=== PATIENT | female | born 1950 | race African-American/Black ===

== ENCOUNTER 2020-02-14 13:13 | Emergency (ER) | payer OTHER, MEDICAID ==
[~2020-02-14] VITALS: Ht 160 cm; Wt 74.8 kg
[2020-02-14] MEDS ORDERED: cloNIDine HCL 0.1 MG TAB ONE (13:47)
[2020-02-14 14:29] LABS: Basophils # (auto) 0.1 10 ^3/uL (0-0.2); Eosinophils # (auto) 0.2 10 ^3/uL (0-0.8); Eosinophils % (auto) 3.4 % (0.0-7.0); Hematocrit 42.7 % (36.0-46.0); Hemoglobin 14.1 g/dL (12.2-16.2); Lymphocytes # (auto) 2.6 10 ^3/uL (0.4-5.4); Lymphocytes % (auto) 43.2 % (10.0-50.0); Mean Corpuscular Hemoglobin 29.6 pg (28.0-32.0); Mean Corpuscular Volume 89.5 fL (80.0-100.0); Monocytes # (auto) 0.4 10 ^3/uL (0-1.3); Monocytes % (auto) 7.3 % (0.0-12.0); Neutrophils # (auto) 2.7 10 ^3/uL (1.6-8.6); Neutrophils % (auto) 45.1 % (37.0-80.0); Nucleated Red Blood Cells % 0.1 %; Platelet Count (auto) 232 10^3/uL (140-450); Red Blood Cells 4.76 10^6/uL (4.0-5.20); Red Cell Distribution Width 13.6 % (11.8-14.3)
[2020-02-14 14:48] LABS: Albumin 3.8 g/dL (3.4-5.0); Anion Gap 4 (5-15); Blood Urea Nitrogen 14 mg/dL (7-18); Calcium 9.5 mg/dL (8.5-10.1); Carbon Dioxide 26 mmol/L (21-32); Chloride 107 mmol/L (98-107); Glucose 79 mg/dL (74-106); Magnesium 2.2 mg/dL (1.6-2.6); Potassium 3.4 mmol/L (3.5-5.1); Sodium 137 mmol/L (136-145)
[2020-02-14 14:54] LABS: Alanine Aminotransferase 31 U/L (13-56); Alkaline Phosphatase 64 U/L (45-117); Aspartate Aminotransferase 23 U/L (15-37); BUN/Creatinine Ratio 19.2; Bilirubin, Total 0.4 mg/dL (0.2-1.0); GFR African American 101 mL/min; GFR Non-African American 84 mL/min; Total Protein 9.2 g/dL (6.4-8.2)
[2020-02-14 15:47] VITALS: BP 121/73
== END 2020-02-14 16:19 | disposition home or self-care (01) ==
LOC: ER 13:13
DX: I16.0 Hypertensive urgency (principal); I10 Essential (primary) hypertension; E11.9 Type 2 diabetes mellitus without complications; E78.5 Hyperlipidemia, unspecified; Z90.710 Acquired absence of both cervix and uterus; Z86.73 Personal history of transient ischemic attack (TIA), and cerebral infarction without residual deficits
CPT/HCPCS: 36415; 71046; 80053; 83735; 84484; 85025; 93005

== ENCOUNTER 2023-02-21 09:29 | Inpatient (IN) | payer OTHER, MEDICAID ==
[~2023-02-21] VITALS: Ht 162.6 cm; Wt 87.0 kg
[2023-02-21] MEDS ORDERED: SODIUM CHLORIDE 0.9% 500 ML IVB ONE (09:45)
[2023-02-21] MEDS ORDERED: ONDANSETRON HCL 4 MG/2 ML VIAL IV ONE (09:45)
[2023-02-21] MEDS ORDERED: MORPHINE SULFATE 4 MG/ML SYR/VIAL IV ONE (09:45)
[2023-02-21 10:06] LABS: Basophils # (auto) 0.1 10 ^3/uL (0-0.2); Basophils % (auto) 0.7 % (0.0-2.0); Eosinophils # (auto) 0.1 10 ^3/uL (0-0.8); Eosinophils % (auto) 1.2 % (0.0-7.0); Hematocrit 41.9 % (36.0-46.0); Hemoglobin 13.9 g/dL (12.2-16.2); Lymphocytes # (auto) 2.6 10 ^3/uL (0.4-5.4); Lymphocytes % (auto) 28.1 % (10.0-50.0); Mean Corpuscular Hemoglobin 28.7 pg (28.0-32.0); Mean Corpuscular Volume 86.7 fL (80.0-100.0); Monocytes # (auto) 0.6 10 ^3/uL (0-1.3); Nucleated Red Blood Cells % 0.1 %; Red Blood Cells 4.83 10^6/uL (4.0-5.20); Red Cell Distribution Width 13.9 % (11.8-14.3); White Blood Cell 9.4 10^3/uL (4.4-10.8)
[2023-02-21 10:35] LABS: Potassium 3.4 mmol/L (3.5-5.1)
[2023-02-21 10:55] LABS: Urine Bacteria NONE SEEN /hpf (None Seen); Urine Blood 1+ /uL (Negative); Urine Hyaline Cast MANY /lpf (0 - 2); Urine Mucus FEW (None Seen); Urine Specific Gravity 1.021 (1.001-1.035); Urine WBC 1 /hpf (0 - 5)
[2023-02-21 10:57] LABS: Albumin 3.9 g/dL (3.4-5.0); BUN/Creatinine Ratio 14.1 (10.0-20.0); Bilirubin, Total 0.7 mg/dL (0.2-1.0); Total Protein 9.4 g/dL (6.4-8.2)
[2023-02-21] MEDS ORDERED: metroNIDAZOLE 500MG/100ML 100 ML IV ONE (11:15)
[2023-02-21] MEDS ORDERED: ACETAMINOPHEN 325 MG TAB PO PRN (16:00)
[2023-02-21] MEDS ORDERED: ONDANSETRON HCL 4 MG/2 ML VIAL IV PRN (16:00)
[2023-02-21] MEDS ORDERED: METO1TAB9 PO (16:10)
[2023-02-21] MEDS ORDERED: AMLO1TAB23 PO (16:10)
[2023-02-21] MEDS ORDERED: ATOR20TA50 PO (16:10)
[2023-02-21] MEDS ORDERED: LISI40TA16 PO (16:10)
[2023-02-21] MEDS ORDERED: HYDROcodone-ACET 5/325MG TAB PO PRN (16:15)
[2023-02-21] MEDS ORDERED: DEXTROSE (50%) 50ML SYRG IV PRN (16:15)
[2023-02-21 16:55] LABS: INR 1.04 (0.9-1.15); Partial Thromboplastin Time 27.2 SEC (24.5-34.5)
[2023-02-21] MEDS: ACCU-CHEK COMFORT CURVE STRIP VI SCH ×2 (18:46→22:00)
[2023-02-21] MEDS: InsuLIN REG 1unit/0.01ml Soln (100units/ml) SC SCH ×2 (18:47→22:29)
[2023-02-21] MEDS: SODIUM CHLORIDE 0.9% 1,000 ML IV SCH (20:10)
[2023-02-21] MEDS: metroNIDAZOLE 500MG/100ML 100 ML IV SCH (22:28)
[2023-02-21] MEDS ORDERED: METF-370 PO (23:19)
[2023-02-21] MEDS ORDERED: GLIM2TAB94 PO (23:19)
[2023-02-21 23:25] VITALS: BP 138/75
[2023-02-22] MEDS: SODIUM CHLORIDE 0.9% 1,000 ML IV SCH ×3 (00:09→17:07)
[2023-02-22 05:00] VITALS: BP 104/53
[2023-02-22 05:47] LABS: Basophils # (auto) 0 10 ^3/uL (0-0.2); Basophils % (auto) 0.5 % (0.0-2.0); Eosinophils # (auto) 0.3 10 ^3/uL (0-0.8); Eosinophils % (auto) 3.8 % (0.0-7.0); Hematocrit 36.1 % (36.0-46.0); Hemoglobin 12.1 g/dL (12.2-16.2); Lymphocytes # (auto) 3.5 10 ^3/uL (0.4-5.4); Lymphocytes % (auto) 41.7 % (10.0-50.0); Mean Corpuscular Hemoglobin 29.2 pg (28.0-32.0); Mean Corpuscular Hgb Conc. 33.4 g/dL (32.0-36.0); Mean Corpuscular Volume 87.5 fL (80.0-100.0); Monocytes # (auto) 0.7 10 ^3/uL (0-1.3); Monocytes % (auto) 7.9 % (0.0-12.0); Neutrophils # (auto) 3.8 10 ^3/uL (1.6-8.6); Neutrophils % (auto) 46.1 % (37.0-80.0); Nucleated Red Blood Cells % 0.1 %; Red Blood Cells 4.13 10^6/uL (4.0-5.20); Red Cell Distribution Width 13.7 % (11.8-14.3); White Blood Cell 8.3 10^3/uL (4.4-10.8)
[2023-02-22 05:53] LABS: Potassium 3.3 mmol/L (3.5-5.1)
[2023-02-22 06:00] LABS: Albumin 3.1 g/dL (3.4-5.0); BUN/Creatinine Ratio 17.6 (10.0-20.0); Bilirubin, Total 0.4 mg/dL (0.2-1.0); Calcium 8.5 mg/dL (8.5-10.1); Total Protein 7.5 g/dL (6.4-8.2)
[2023-02-22] MEDS: metroNIDAZOLE 500MG/100ML 100 ML IV SCH ×3 (06:02→21:38)
[2023-02-22] MEDS: ACCU-CHEK COMFORT CURVE STRIP VI SCH ×4 (06:02→21:39)
[2023-02-22] MEDS: InsuLIN REG 1unit/0.01ml Soln (100units/ml) SC SCH ×4 (06:52→22:00)
[2023-02-22 08:00] VITALS: BP 112/65
[2023-02-22] MEDS: PANTOPRAZOLE 40 MG/10 ML VIAL INJ IV SCH (08:54)
[2023-02-22] MEDS: ATORVASTATIN 20 MG TAB PO SCH (08:56)
[2023-02-22] MEDS ORDERED: LISINOPRIL 20 MG TAB PO SCH (10:00)
[2023-02-22] MEDS ORDERED: METOPROLOL SUCCINATE XL 50 MG TAB PO SCH (10:00)
[2023-02-22] MEDS ORDERED: amLODIPine BESYLATE 5 MG TAB PO SCH (10:00)
[2023-02-22 12:00] VITALS: BP 126/74
[2023-02-22] MEDS ORDERED: POTASSIUM CHL 20 Meq TABLET PO ONE (14:00)
[2023-02-22 16:00] VITALS: BP 115/66
[2023-02-22] MEDS: cefTRIAXone 1GM/50ML D5W 50 ML IV SCH (17:04)
[2023-02-22 22:00] VITALS: BP 133/72
[2023-02-23] MEDS: SODIUM CHLORIDE 0.9% 1,000 ML IV SCH ×2 (03:27→16:51)
[2023-02-23 05:00] VITALS: BP 105/49
[2023-02-23 05:45] LABS: Basophils # (auto) 0.1 10 ^3/uL (0-0.2); Eosinophils # (auto) 0.4 10 ^3/uL (0-0.8); Eosinophils % (auto) 6.9 % (0.0-7.0); Hematocrit 38.2 % (36.0-46.0); Hemoglobin 12.4 g/dL (12.2-16.2); Lymphocytes # (auto) 2.1 10 ^3/uL (0.4-5.4); Lymphocytes % (auto) 36.3 % (10.0-50.0); Mean Corpuscular Hemoglobin 28.9 pg (28.0-32.0); Mean Corpuscular Hgb Conc. 32.5 g/dL (32.0-36.0); Mean Corpuscular Volume 88.8 fL (80.0-100.0); Monocytes # (auto) 0.5 10 ^3/uL (0-1.3); Monocytes % (auto) 7.7 % (0.0-12.0); Neutrophils # (auto) 2.8 10 ^3/uL (1.6-8.6); Neutrophils % (auto) 48.1 % (37.0-80.0); Nucleated Red Blood Cells % 0.1 %; Red Cell Distribution Width 13.6 % (11.8-14.3); White Blood Cell 5.9 10^3/uL (4.4-10.8)
[2023-02-23] MEDS: metroNIDAZOLE 500MG/100ML 100 ML IV SCH ×2 (06:01→13:07)
[2023-02-23] MEDS: ACCU-CHEK COMFORT CURVE STRIP VI SCH ×4 (06:01→21:46)
[2023-02-23] MEDS: InsuLIN REG 1unit/0.01ml Soln (100units/ml) SC SCH ×4 (06:11→21:46)
[2023-02-23 08:30] VITALS: BP 125/55
[2023-02-23] MEDS: ATORVASTATIN 20 MG TAB PO SCH (09:29)
[2023-02-23] MEDS: PANTOPRAZOLE 40 MG/10 ML VIAL INJ IV SCH (09:29)
[2023-02-23] MEDS: cefTRIAXone 1GM/50ML D5W 50 ML IV SCH (09:30)
[2023-02-23] MEDS: METOPROLOL SUCCINATE XL 50 MG TAB PO SCH (09:30)
[2023-02-23 09:56] LABS: Calcium 8.8 mg/dL (8.5-10.1); Potassium 3.9 mmol/L (3.5-5.1)
[2023-02-23 13:13] VITALS: BP 113/63
[2023-02-23 15:19] LABS: Basophils # (auto) 0 10 ^3/uL (0-0.2); Basophils % (auto) 0.6 % (0.0-2.0); Eosinophils # (auto) 0.4 10 ^3/uL (0-0.8); Eosinophils % (auto) 5.9 % (0.0-7.0); Hematocrit 41.6 % (36.0-46.0); Hemoglobin 13.5 g/dL (12.2-16.2); Lymphocytes # (auto) 2.5 10 ^3/uL (0.4-5.4); Lymphocytes % (auto) 36.9 % (10.0-50.0); Mean Corpuscular Hemoglobin 28.7 pg (28.0-32.0); Mean Corpuscular Hgb Conc. 32.5 g/dL (32.0-36.0); Mean Corpuscular Volume 88.2 fL (80.0-100.0); Monocytes # (auto) 0.4 10 ^3/uL (0-1.3); Monocytes % (auto) 6.1 % (0.0-12.0); Neutrophils # (auto) 3.4 10 ^3/uL (1.6-8.6); Neutrophils % (auto) 50.5 % (37.0-80.0); Nucleated Red Blood Cells % 0.1 %; Red Blood Cells 4.71 10^6/uL (4.0-5.20); Red Cell Distribution Width 13.9 % (11.8-14.3); White Blood Cell 6.7 10^3/uL (4.4-10.8)
[2023-02-23 16:36] VITALS: BP 128/59
[2023-02-23] MEDS: metroNIDAZOLE 500 MG TAB PO SCH (21:45)
[2023-02-23 22:00] VITALS: BP 124/64
[2023-02-24] MEDS: SODIUM CHLORIDE 0.9% 1,000 ML IV SCH ×2 (03:50→11:36)
[2023-02-24 05:00] VITALS: BP 125/64
[2023-02-24] MEDS: metroNIDAZOLE 500 MG TAB PO SCH ×2 (05:45→13:12)
[2023-02-24] MEDS: InsuLIN REG 1unit/0.01ml Soln (100units/ml) SC SCH ×2 (06:05→11:40)
[2023-02-24] MEDS: ACCU-CHEK COMFORT CURVE STRIP VI SCH ×2 (06:05→11:36)
[2023-02-24] MEDS: PANTOPRAZOLE 40 MG/10 ML VIAL INJ IV SCH (08:44)
[2023-02-24] MEDS: ATORVASTATIN 20 MG TAB PO SCH (08:44)
[2023-02-24] MEDS: cefTRIAXone 1GM/50ML D5W 50 ML IV SCH (08:44)
[2023-02-24] MEDS: METOPROLOL SUCCINATE XL 50 MG TAB PO SCH (08:44)
[2023-02-24 09:00] VITALS: BP 134/68
[2023-02-24 13:00] VITALS: BP 118/58
[2023-02-24] MEDS ORDERED: MET500T PO (14:39)
[2023-02-24] MEDS ORDERED: LEVO500T91 PO (14:39)
[2023-02-24 15:31] VITALS: BP 118/58
== END 2023-02-24 16:08 | disposition home or self-care (01) | DRG 394 ==
LOC: ER 09:29 → OVERFLOW 16:02 → CENTRAL 22:55
PROVIDERS: ADMIT Internal Medicine; ATTEND Student in an Organized Health Care Education/Training Program
DX: K55.039 Acute (reversible) ischemia of large intestine, extent unspecified (principal); K92.2 Gastrointestinal hemorrhage, unspecified; B19.20 Unspecified viral hepatitis C without hepatic coma; E11.9 Type 2 diabetes mellitus without complications; E66.01 Morbid (severe) obesity due to excess calories; E87.6 Hypokalemia; E78.5 Hyperlipidemia, unspecified; I10 Essential (primary) hypertension; Z68.32 Body mass index [BMI] 32.0-32.9, adult; Z86.73 Personal history of transient ischemic attack (TIA), and cerebral infarction without residual deficits; Z83.3 Family history of diabetes mellitus; Z90.710 Acquired absence of both cervix and uterus
CPT/HCPCS: 36415; 74176; 80048; 80053; 81001; 82270; 82962; 83036; 83690; 85025; 85048; 85610; 85730; 86850; 86900; 86901; 87177; C9113; G0378; J0696; J1815; J3490